=== PATIENT | female | born 1995 | race Caucasian/White ===

== ENCOUNTER 2018-05-07 09:35 | Inpatient (IN) ==
[2018-05-07] MEDS ORDERED: OXYTOCIN/DEXTROSE 5%-WATER 30 UNITS/500 ML BAG IV ONE (09:40)
[2018-05-07] MEDS ORDERED: NALBUPHINE HCL 10 MG/ML AMPUL IV PRN ×2 (09:40)
[2018-05-07] MEDS ORDERED: LIDOCAINE HCL 50 ML VIAL PERI PRN (09:40)
[2018-05-07] MEDS ORDERED: ONDANSETRON HCL/PF 2 MG/ML VIAL IV PRN (09:40)
--- NOTE | 2018-05-07 09:48 | HP ---
Chief Complaint - Chief Complaint Date of Service: 05/07/18 Time of Service: 09:42 Chief Complaint: leakage of fluid for one week History of Present Illness: The patient presented today for a routine obstetrical visit. She reports leakage of small amounts of fluid for one week. She denies fever, chills, abdominal pain. She denies contractions today but she has had bouts of contractions. She denies vaginal bleeding. Fetus is active. Medical History (Last Reviewed 02/19/18 @ 13:19 by Joel Motta RN) Currently Onset Date: 10/08/17 No significant past surgical history ADHD Onset Date: Unknown GERD (gastroesophageal reflux disease) Onset Date: 10/08/17 Irregular menses Onset Date: Unknown Dyslexia Onset Date: Unknown Dysnomia Onset Date: Unknown Family History: Family History (Last Reviewed 02/19/18 @ 13:19 by Joel Motta RN) Father Alive and well Grandfather Diabetes paternal History of throat cancer Grandmother Breast cancer maternal Mother Vertigo Uncle Diabetes maternal Social History: Preferred Language Luxembourgish Psych History No pertinent hx (Last Updated 05/07/18 @ 09:38 by Blanca Santos MD) No Social History Section defined Review Of Systems (GEN) - Review of Systems Misc: All systems neg except as marked Immunizations: IMMUNIZATION HX Immunizations Up to Date Yes History of Influenza Vaccine No Hx Pneumococcal Vaccination No Allergies/Adverse Reactions: Allergies Allergy/AdvReac Type Severity Reaction Status Date / Time Penicillins Allergy Severe hives Verified 05/07/18 09:04 Home Medications: HOME MEDICATIONS ferrous sulfate 325 mg (65 mg iron) tablet 325 mg PO DAILY #30 tab 03/06/18 [Last Taken 04/04/18] blood sugar diagnostic strips See Dose Instructions .ROUTE .MEDSUPPLY #20 ea 03/20/18 [Last Taken Unknown] blood-glucose meter kit See Dose Instructions .ROUTE .MEDSUPPLY #1 ea 03/20/18 [Last Taken Unknown] lancets 33 gauge See Dose Instructions .ROUTE .MEDSUPPLY #100 ea 03/20/18 [Last Taken Unknown] vitamin,calcium,nfqaofwq-ottl-pesqa acid tablet 1 tab PO DAILY #30 tab 03/20/18 [Last Taken 04/04/18] nystatin 100,000 unit/gram topical powder 1 applic TP BID #15 g 04/22/18 [Last Taken Unknown] ranitidine 300 mg tablet 300 mg PO DAILY #30 tab 04/22/18 [Last Taken Unknown] Exam - Exam Constitutional: Present: Alert, Oriented x3, Cooperative, No distress Respiratory: Present: lungs clear, normal breath sounds Cardiovascular/Chest: Present: regular rate, rhythm, no murmur Abdomen: Present: soft, nontender, nondistended Extremity: Present: non-tender, no calf tenderness Skin Exam: Present: normal color, warm/dry, no cyanosis Appearance: Present: appropriate appearance Eye contact: Present: cooperative Thoughts: Present: normal thought pattern Assessment/Plan - Narrative Narrative: 22 yo @ 37w 0d 1. PROM: pitocin for labor induction 2. GBS negative: prophylaxis not indicated
[2018-05-07 10:03] LABS: Hematocrit 37.7 % (37.0-47.0); Hemoglobin 12.7 gm/dL (12.5-16.0); Mean Cell Volume 86.9 fl (78-100); Mean Corpuscular Hemoglobin 29.3 pg (27-31); Mean Corpuscular Hgb Conc 33.7 g/dl (32-36); Mean Platelet Volume 10.2 fl (8-12.5); Neutrophil % 75.7 % (42-75.0); Platelet Count 218 K/mm3 (150-450); Red Blood Count 4.34 M/mm3 (4.2-5.4); Red Cell Distribution Width 13.9 % (11.5-14.0); White Blood Count 9.3 K/mm3 (4.0-10.5)
[2018-05-07] MEDS: RINGER'S SOLUTION,LACTATED 1,000 ML IV PRN ×2 (10:08→18:49)
[2018-05-07] MEDS: CLINDAMYCIN PHOSPHATE 900 MG in DEXTROSE 5 % IN WATER 100 ML IV SCH ×4 (11:52→19:51)
[2018-05-07 17:40] LABS: Cocaine Ur Negative (NEGATIVE); Urine Barbiturate Negative (NEGATIVE); Urine Benzodiazepines Negative (NEGATIVE); Urine Opiates Negative (NEGATIVE); Urine PCP Negative (NEGATIVE); Urine THC Negative (NEGATIVE)
[2018-05-07] MEDS ORDERED: VANCOMYCIN HCL 1 GM in DEXTROSE 5 % IN WATER 250 ML IV SCH ×2 (23:04)
[2018-05-08] MEDS: CLINDAMYCIN PHOSPHATE 900 MG in DEXTROSE 5 % IN WATER 100 ML IV SCH ×6 (03:43→20:20)
[2018-05-08] MEDS: RINGER'S SOLUTION,LACTATED 1,000 ML IV PRN ×3 (03:43→19:10)
--- NOTE | 2018-05-08 07:38 | PN ---
Progess Note - Interim Date: 05/08/18 Time: 07:35 Narrative: 05/08/18 07:36 Pt without complaints cvx 2.5/70/-2 Pitocin currently at 12 milliunits Slow progress with IOL due to prolonged PROM Pt requesting a delivery. She is counseled that she is not yet in active labor and that a delivery is not indicated. The patient verbalizes understanding. Epidural PRN Cont clinda, pt afebrile Continue to titrate pitocin up
[2018-05-08] MEDS: CALCIUM CARBONATE 500 MG TAB.CHEW PO SCH ×2 (07:46→09:34)
[2018-05-08] MEDS ORDERED: CALCIUM CARBONATE 500 MG TAB.CHEW PO SCH (09:00)
[2018-05-08] MEDS: FAMOTIDINE 20 MG TABLET PO SCH ×2 (11:35→12:28)
[2018-05-08] MEDS ORDERED: OXYTOCIN/DEXTROSE 5%-WATER 30 UNITS/500 ML BAG IV ONE (15:38)
--- NOTE | 2018-05-08 16:27 | PN ---
Tha Note - Interim Date: 05/08/18 Time: 16: Narrative: 05/08/18 16:26 The patient is comfortable cvx /- Forebag identified and ruptured with minimal clear fluid seen FHT is cat 1 Pitocin currently off Regular diet then resume pitocin after regular diet
[2018-05-08] MEDS ORDERED: ONDANSETRON HCL/PF 2 MG/ML VIAL IV PRN ×2 (19:16→19:19)
[2018-05-08] MEDS ORDERED: NALOXONE HCL 1 MG/1 ML SYRG IV PRN ×2 (19:16→19:19)
[2018-05-08] MEDS ORDERED: BUPIVACAINE HCL/0.9 % NACL/PF 250 ML EP PRN (19:19)
[2018-05-08] MEDS ORDERED: RINGER'S SOLUTION,LACTATED 1,000 ML IV ONE (19:30)
[2018-05-08] MEDS ORDERED: fentaNYL CITRATE/PF 50 MCG/ML AMPUL IT SCH (19:30)
[2018-05-08] MEDS ORDERED: LIDOCAINE HCL 50 ML VIAL ONE (20:04)
--- NOTE | 2018-05-08 20:20 | ANES ---
Anesthesia Pre Procedure Eval Vitals/Labs: Last Vital Signs Temp 37.1 C 05/08/18 06:15 Pulse 85 05/08/18 06:15 Resp 20 05/08/18 06:15 BP 126/71 05/08/18 06:15 Pulse Ox 96 05/08/18 06:15 HOME MEDICATIONS ferrous sulfate 325 mg (65 mg iron) tablet 325 mg PO DAILY #30 tab 03/06/18 [Last Taken 05/07/18] blood sugar diagnostic strips See Dose Instructions .ROUTE .MEDSUPPLY #20 ea 03/20/18 [Last Taken Unknown] blood-glucose meter kit See Dose Instructions .ROUTE .MEDSUPPLY #1 ea 03/20/18 [Last Taken Unknown] lancets 33 gauge See Dose Instructions .ROUTE .MEDSUPPLY #100 ea 03/20/18 [Last Taken Unknown] vitamin,calcium,ccnrqwlm-xbnt-lgobu acid tablet 1 tab PO DAILY #30 tab 03/20/18 [Last Taken 05/07/18] ranitidine 300 mg tablet 300 mg PO DAILY #30 tab 04/22/18 [Last Taken 05/07/18] Allergies/Adverse Reactions: Allergies Allergy/AdvReac Type Severity Reaction Status Date / Time Penicillins Allergy Severe hives Verified 05/07/18 09:04 - Planned Procedure Planned Procedure: INDUCTION Medication List Reviewed:: Yes Allergies Verified: Yes Medical History (Last Reviewed 05/08/18 @ 20:20 by Chriss Lynn CRNA) Currently Onset Date: 10/08/17 No significant past surgical history ADHD Onset Date: Unknown GERD (gastroesophageal reflux disease) Onset Date: 10/08/17 Irregular menses Onset Date: Unknown Dyslexia Onset Date: Unknown Dysnomia Onset Date: Unknown Family History (Last Reviewed 05/08/18 @ 20:20 by Chriss Lynn CRNA) Father Alive and well Grandfather Diabetes paternal History of throat cancer Grandmother Breast cancer maternal Mother Vertigo Uncle Diabetes maternal - Family Anesthesia History Family History:: no untoward family reactions to anesthesia - Airway/Neck/Teeth Teeth Condition: Intact - Respiratory Smoking Status: Never smoker Sleep Apnea currently treated: No Sleep Apnea by current assessment: No - Cardiovascular Patient History - Cardiac/Respiratory: No pertinent hx Tolerates Activity: Good Heart Sounds: S1 & S2, Regular - Anesthesia Assessment and Plan ASA Class: PS, II Anesthesia Type Plan: Epidural Planned difficult intubation/equipment available: No
--- NOTE | 2018-05-08 20:21 | ANES ---
Post Anesthesia Discharge - Transfer of Care Transfer of Care handoff given to nurse: Yes - Anesthesia Post Op Note Anesthesia Post Op Note: Care transferred to OB RN
--- NOTE | 2018-05-08 20:21 | ANES ---
Post Anesthesia Assessment - Vital Signs Vitals: Last Vital Signs Temp 37.1 C 05/08/18 06:15 Pulse 85 05/08/18 06:15 Resp 20 05/08/18 06:15 BP 126/71 05/08/18 06:15 Pulse Ox 96 05/08/18 06:15 Airway Patency: Normal - Mental Status Level Of Consciousness: Awake - Pain Level Pain Score: 1 - N/V Assessment Nausea/Vomiting Presence: None Dehydration:: No
--- NOTE | 2018-05-08 20:23 | ANES ---
Anesthesia Procedure Note Procedure Note: ANESTHESIA PROCEDURE NOTE Date of Procedure: 05/08/2018 Time of procedure:[]. 2004 Performed by: Rudy Lynn CRNA Business Intelligence Developer: None. Preprocedure diagnosis: Active labor. Post procedure diagnosis: Same. Procedure: Insertion of labor epidural. Indications: The patient is a [22] -year-old [prima para] female in active labor requesting labor epidural for pain management. Findings: See below. Details of the procedure: The patient was placed in a sitting position. Back was prepped with DuraPrep. Patient was then draped in a sterile fashion. Lidocaine 1% was infiltrated to the skin and subcutaneous tissues at the level of the L3 4 interspace. The epidural space was identified using a 18-gauge Tuohy needle with megw-hz-ykyjdzxgtt technique. 20 mcg fentanyl was given intrathecally using a 27 ga. spinal needle. Epidural catheter was inserted without difficulty. Negative test dose was elicited using 5 mL of 1.5% preservative-free lidocaine plus epinephrine 1 200,000. The epidural catheter was then taped and secured in place. EBL: Minimal. Fluids: N/A. Specimen: N/A. Post procedure condition: The patient tolerated the procedure well. No complications were noted. Thank you for this consultation. Lanier CRNA
[2018-05-08] MEDS ORDERED: LIDOCAINE HCL 50 ML VIAL IJ ONE (20:26)
[2018-05-09] MEDS ORDERED: DEXTROSE 5% IV ONE ×2 (03:39)
[2018-05-09] MEDS ORDERED: GENTAMICIN SULFATE IV ONE ×2 (03:39)
[2018-05-09] MEDS ORDERED: CLINDAMYCIN PHOSPHATE 900 MG in DEXTROSE 5 % IN WATER 100 ML IV ONE ×2 (03:39)
[2018-05-09] MEDS ORDERED: WATER IV ONE ×2 (03:39)
--- NOTE | 2018-05-09 03:44 | PN ---
Tha Note - Interim Date: 05/09/18 Time: 03:43 Narrative: 05/09/18 03:43 The patient's cervix is a tight band around the head and there has not been any progress beyond 9 cm. Therefore, proceed with delivery. All risks, benefits, and alternatives of the procedure were explained to the patient and the patient consented to the procedure. Gentamicin and clindamycin for antibiotic prophylaxis.
--- NOTE | 2018-05-09 04:27 | ANES ---
Anesthesia Pre Procedure Eval Vitals/Labs: Last Vital Signs Temp 37.1 C 05/08/18 06:15 Pulse 85 05/08/18 06:15 Resp 20 05/08/18 06:15 BP 126/71 05/08/18 06:15 Pulse Ox 96 05/08/18 06:15 HOME MEDICATIONS ferrous sulfate 325 mg (65 mg iron) tablet 325 mg PO DAILY #30 tab 03/06/18 [Last Taken 05/07/18] blood sugar diagnostic strips See Dose Instructions .ROUTE .MEDSUPPLY #20 ea 03/20/18 [Last Taken Unknown] blood-glucose meter kit See Dose Instructions .ROUTE .MEDSUPPLY #1 ea 03/20/18 [Last Taken Unknown] lancets 33 gauge See Dose Instructions .ROUTE .MEDSUPPLY #100 ea 03/20/18 [Last Taken Unknown] vitamin,calcium,jgakedln-bpse-sylbb acid tablet 1 tab PO DAILY #30 tab 03/20/18 [Last Taken 05/07/18] ranitidine 300 mg tablet 300 mg PO DAILY #30 tab 04/22/18 [Last Taken 05/07/18] Allergies/Adverse Reactions: Allergies Allergy/AdvReac Type Severity Reaction Status Date / Time Penicillins Allergy Severe hives Verified 05/07/18 09:04 - Planned Procedure Planned Procedure: Medication List Reviewed:: Yes Allergies Verified: Yes Medical History (Last Reviewed 05/09/18 @ 04:25 by Chriss Lynn CRNA) Currently Onset Date: 10/08/17 No significant past surgical history ADHD Onset Date: Unknown GERD (gastroesophageal reflux disease) Onset Date: 10/08/17 Irregular menses Onset Date: Unknown Dyslexia Onset Date: Unknown Dysnomia Onset Date: Unknown Family History (Last Reviewed 05/09/18 @ 04:25 by Chriss Lynn CRNA) Father Alive and well Grandfather Diabetes paternal History of throat cancer Grandmother Breast cancer maternal Mother Vertigo Uncle Diabetes maternal - Family Anesthesia History Family History:: no untoward family reactions to anesthesia - Airway/Neck/Teeth Within Normal Limits:: Yes Teeth Condition: Intact Denture Type: None Neck Exam: full range of motion, normal inspection Mallampatti Score: 2 Thyromental (T-M) distance: > 6 cm Mandibulo Hyoid distance: > 3 cm - Respiratory Respiratory: lungs clear Smoking Status: Never smoker Sleep Apnea currently treated: No Sleep Apnea by current assessment: No - Cardiovascular Patient History - Cardiac/Respiratory: No pertinent hx Tolerates Activity: Fair Heart Sounds: S1 & S2, Regular - Anesthesia Assessment and Plan ASA Class: PS, II, E Anesthesia Type Plan: Epidural - Bilat TAP block for postop analgesia
[2018-05-09] MEDS: CLINDAMYCIN PHOSPHATE 900 MG in DEXTROSE 5 % IN WATER 100 ML IV SCH ×2 (04:35)
[2018-05-09] MEDS: RINGER'S SOLUTION,LACTATED 1,000 ML IV PRN (04:45)
[2018-05-09] MEDS: OXYTOCIN 20 UNITS in RINGER'S SOLUTION,LACTATED 1,000 ML IV ONE ×2 (04:57→11:32)
[2018-05-09] MEDS ORDERED: RINGER'S SOLUTION,LACTATED 1,000 ML IV ONE (05:24)
[2018-05-09] MEDS ORDERED: BISACODYL 10 MG SUPP.RECT RC PRN (05:24)
[2018-05-09] MEDS ORDERED: SIMETHICONE 80 MG TAB.CHEW PO PRN (05:24)
[2018-05-09] MEDS ORDERED: HYDROcodone/ACETAMINOPHEN 1 EACH TABLET PO PRN (05:24)
[2018-05-09] MEDS ORDERED: ONDANSETRON HCL/PF 2 MG/ML VIAL IV PRN (05:24)
[2018-05-09] MEDS ORDERED: SENNOSIDES 8.6 MG TABLET PO PRN (05:24)
[2018-05-09] MEDS ORDERED: diphenhydrAMINE HCL 25 MG CAPSULE PO PRN (05:24)
[2018-05-09] MEDS ORDERED: ACETAMINOPHEN 325 MG TABLET PO PRN (05:24)
--- NOTE | 2018-05-09 05:42 | OR ---
Operative Report - Dictated Report Narrative: Date of procedure: 05/09/2018 Time of delivery: 456 Gender: male weight: 3012 grams APGARS 8/9 Preoperative diagnosis: arrest of dilation, prolonged rupture of membranes Postoperative diagnosis: same, OP presentation Procedure: primary delivery Surgeon: Dr. Santos Indications for the procedure: The patient is a 22 yo who presented to the office complaining of loss of fluid for one week. She was found to be ruptured. She progressed to a dilation of 9 cm after which time there was a tight band of cervix all around the head that persisted for two hours. Therefore, she was consented for delivery. All risks, benefits, and alternatives of the procedure were explained to the patient and she consented to the procedure. Description of the procedure: The patient was taken to the operating room where her epidural anesthesia was found to be adequate. She was then prepped and draped in the standard surgical fashion in the supine position. A time out was performed. A Pfannestiel skin incision was made. The incision was carried through the subcutaneous tissue. The fascia was incised in the midline. The fascial incision was extended sharply. The fascia was dissected off the underlying rectus muscle. The rectus muscles were in the midline. The peritoneum was entered bluntly. An Omid O large retractor was placed. The lower uterine segment was incised in a transverse fashion. The head was delivered and the head was noted to be in the occiput posterior presentation. The rest of the was delivered atraumatically and handed off to the attendant staff. The placenta was removed by manual uterine exploration and appeared intact. The uterus was cleaned of all clots and debri. The uterine incision was closed with an 0-vicryl continuous locking suture. Additional hemostasis was obtained with a figure of eight suture. The rectus muscles were then examined as was the uterine incision and they appeared hemostatic. The fascia was closed with 1-0 vicryl. The subcutaneous tissue was closed with 2-0 vicryl to undermine the space. The skin incision was closed with 3-0 monocryl on a Talib needle. Dermabond was placed over the skin incision. All sponge, lap, and needle counts were correct. The patient tolerated the procedure well. She was transferred to the recovery room in stable condition. EBL: 900 mL Complications: none
--- NOTE | 2018-05-09 05:50 | ANES ---
Post Anesthesia Discharge - Transfer of Care Transfer of Care handoff given to nurse: Yes - Discharge from PACU Discharge from PACU when meets criteria: Yes
--- NOTE | 2018-05-09 05:50 | ANES ---
Post Anesthesia Assessment - Vital Signs Vitals: Last Vital Signs Temp 38.0 C 05/09/18 05:35 Pulse 105 H 05/09/18 05:45 Resp 16 05/09/18 05:45 BP 106/43 05/09/18 05:45 Pulse Ox 100 05/09/18 05:45 Airway Patency: Normal - Mental Status Level Of Consciousness: Awake - Pain Level Pain Score: 0 - N/V Assessment Nausea/Vomiting Presence: None Dehydration:: No
[2018-05-09] MEDS ORDERED: OXYTOCIN 20 UNITS in RINGER'S SOLUTION,LACTATED 1,000 ML IV ONE (06:34)
[2018-05-09] MEDS: HYDROcodone/ACETAMINOPHEN 1 EACH TABLET PO PRN ×6 (06:55→22:20)
[2018-05-09] MEDS: IBUPROFEN 800 MG TABLET PO PRN (06:56)
[2018-05-09] MEDS: DOCUSATE SODIUM 100 MG CAPSULE PO SCH ×2 (09:59→21:30)
[2018-05-09] MEDS: CALCIUM CARBONATE 500 MG TAB.CHEW PO SCH ×2 (10:00→21:31)
[2018-05-09] MEDS: FAMOTIDINE 20 MG TABLET PO SCH ×2 (10:00→21:31)
[2018-05-09] MEDS: KETOROLAC TROMETHAMINE 30 MG/ML VIAL IV PRN ×2 (13:04→19:16)
[2018-05-10] MEDS: HYDROcodone/ACETAMINOPHEN 1 EACH TABLET PO PRN ×3 (03:12→10:24)
[2018-05-10] MEDS: IBUPROFEN 800 MG TABLET PO PRN ×2 (07:22→18:34)
[2018-05-10] MEDS: DOCUSATE SODIUM 100 MG CAPSULE PO SCH ×2 (08:28→20:49)
--- NOTE | 2018-05-10 13:55 | PN ---
Subjective - Date and Time Seen Date: 05/10/18 Time: 13:52 Subjective Narrative: Patient without complaints. Her vaginal bleeding is normal. Objective Objective Narrative: See vital signs - Review of Systems Generalized/Overall Review: Reports: No Symptoms Reported Misc: All systems neg except as marked - Vitals Vitals: Last Vital Signs Temp 37.3 C 05/10/18 06:51 Pulse 102 H 05/10/18 06:51 Resp 16 05/10/18 06:51 BP 150/67 H 05/10/18 06:51 Pulse Ox 98 05/10/18 06:51 - Exam Constitutional: Present: Alert, Oriented x3, Cooperative, No distress Abdomen: Present: soft, nontender, nondistended - incision c/d/i Extremity: Present: normal inspection, no calf tenderness Skin Exam: Present: normal color, warm/dry, no cyanosis Appearance: Present: appropriate appearance Eye contact: Present: cooperative Thoughts: Present: normal thought pattern Cauti Physician Documentation - Urinary Catheter Management Urethral (Brady) Urethral Indwelling: No Date of Insertion: 05/08/18 Time of Insertion: 20:30 Date of Removal: 05/09/18 Time of Removal: 17:08 Assessment/Plan Plan Narrative: POD 1 s/p delivery Doing well Discharge POD 3
[2018-05-10] MEDS: FAMOTIDINE 20 MG TABLET PO SCH (20:49)
[2018-05-10] MEDS: CALCIUM CARBONATE 500 MG TAB.CHEW PO SCH (20:49)
[2018-05-11] MEDS: IBUPROFEN 800 MG TABLET PO PRN ×3 (00:45→20:23)
[2018-05-11] MEDS: DOCUSATE SODIUM 100 MG CAPSULE PO SCH ×2 (08:01→20:23)
--- NOTE | 2018-05-11 09:12 | PN ---
Subjective - Date and Time Seen Date: 05/11/18 Time: 09:11 Subjective Narrative: Patient without complaints. Her vaginal bleeding is normal. Objective Objective Narrative: See vital signs - Review of Systems Generalized/Overall Review: Reports: No Symptoms Reported Misc: All systems neg except as marked - Vitals Vitals: Last Vital Signs Temp 36.9 C 05/11/18 07:35 Pulse 92 05/11/18 07:35 Resp 18 05/11/18 07:35 BP 124/70 05/11/18 07:35 Pulse Ox 99 05/11/18 07:35 - Exam Constitutional: Present: Alert, Oriented x3, Cooperative, No distress Cardiovascular/Chest: Present: regular rate, rhythm, no murmur Abdomen: Present: soft, nontender, nondistended Extremity: Present: non-tender, no calf tenderness, pedal edema Skin Exam: Present: normal color, warm/dry, no cyanosis Appearance: Present: appropriate appearance Eye contact: Present: cooperative Thoughts: Present: normal thought pattern Cauti Physician Documentation - Urinary Catheter Management Urethral (Brady) Urethral Indwelling: No Date of Insertion: 05/08/18 Time of Insertion: 20:30 Date of Removal: 05/09/18 Time of Removal: 17:08 Assessment/Plan Plan Narrative: POD 2 s/p delivery Doing well Discharge tomorrow
[2018-05-11] MEDS: HYDROcodone/ACETAMINOPHEN 1 EACH TABLET PO PRN ×2 (12:04→17:37)
[2018-05-11] MEDS: CALCIUM CARBONATE 500 MG TAB.CHEW PO SCH (20:23)
[2018-05-11] MEDS: FAMOTIDINE 20 MG TABLET PO SCH (20:23)
[2018-05-12] MEDS: HYDROcodone/ACETAMINOPHEN 1 EACH TABLET PO PRN ×2 (05:41→12:03)
[2018-05-12] MEDS: IBUPROFEN 800 MG TABLET PO PRN ×2 (05:41→12:02)
--- NOTE | 2018-05-12 08:37 | PN ---
Subjective - Date and Time Seen Date: 05/12/18 Time: 08:36 Subjective Narrative: Patient without complaints. Her vaginal bleeding is normal. Objective Objective Narrative: See vital signs - Review of Systems Generalized/Overall Review: Reports: No Symptoms Reported Misc: All systems neg except as marked - Vitals Vitals: Last Vital Signs Temp 36.8 C 05/12/18 01:26 Pulse 108 H 05/12/18 01:26 Resp 16 05/12/18 01:26 BP 111/64 05/12/18 01:26 Pulse Ox 99 05/12/18 01:26 - Exam Constitutional: Present: Alert, Oriented x3, Cooperative, No distress Abdomen: Present: soft, nontender, nondistended - incision c/d/i Extremity: Present: no pedal edema, no calf tenderness Skin Exam: Present: normal color, warm/dry, no cyanosis Appearance: Present: appropriate appearance Eye contact: Present: cooperative Thoughts: Present: normal thought pattern Cauti Physician Documentation - Urinary Catheter Management Urethral (Brady) Urethral Indwelling: No Date of Insertion: 05/08/18 Time of Insertion: 20:30 Date of Removal: 05/09/18 Time of Removal: 17:08 Assessment/Plan Plan Narrative: POD 3 s/p delivery Doing well Discharge today
[2018-05-12 08:39] VITALS: BP 126/68
[2018-05-12] MEDS: DOCUSATE SODIUM 100 MG CAPSULE PO SCH (10:55)
== END 2018-05-12 13:00 | disposition home or self-care (01) | DRG 788 ==
LOC: OB 09:35 → MS 05-11 15:44
PROVIDERS: ADMIT Obstetrics & Gynecology; ATTEND Obstetrics & Gynecology
CPT/HCPCS: 36415; 59025; 80307; 85025; 86850; 86870; 86900; 88307; G0479